=== PATIENT | female | born 1955 | race Caucasian/White ===

== ENCOUNTER 2017-03-06 06:47 | Emergency (ER) | payer OTHER ==
[2017-03-06 06:49] VITALS: BMI 31.5
[2017-03-06 07:15] VITALS: TEMP 98.1
[2017-03-06] MEDS ORDERED: Vancomycin 1gm in NS 250ml 1 GM/250 ML BAG IVPB STA (07:18)
[2017-03-06] MEDS ORDERED: cefTRIAXone 1 gm 1 GM/100 ML BAG IVPB STA (07:18)
--- NOTE | 2017-03-06 07:21 | ED PDOC ---
Arrival/HPI - General Chief Complaint: Eye Problem Time Seen by Provider: 03/06/17 07:03 Historian: Patient - History of Present Illness Narrative History of Present Illness (Text): 03/06/17 07:18 Radha Burris is a 61 year old female, whose past medical history includes hypertension, diabetes and hypercholestremia, presents to the emergency department complaining of 2 day duration of bilateral eye discharge and left periorbital swelling. States she used Visine eye drops for symptomatic relief to the right eye, but states left eye discharge and swelling is unresolved. Denies any vision changes. Denies any numbness to the area. Denies photophobia. Denies any other complaints. PMD: Time/Duration: Other (2 days ) Symptom Onset: Gradual Severity Level: Mild Activities at Onset: Light Past Medical History - Provider Review Nursing Documentation Reviewed: Yes - Infectious Disease Hx of Infectious Diseases: None - Reproductive Menopause: Yes - Cardiac Hx Hypertension: Yes - Pulmonary Hx Respiratory Disorders: No - Neurological Hx Neurological Disorder: No - HEENT Hx HEENT Disorder: Yes Other/Comment: POLYPS IN VOICE BOX - Renal Hx Renal Disorder: No - Endocrine/Metabolic Hx Diabetes Mellitus Type 2: Yes - Hematological/Oncological Hx Anemia: Yes - Integumentary Hx Dermatological Disorder: No - Musculoskeletal/Rheumatological Hx Back Pain: Yes - Gastrointestinal Hx Gall Bladder Disease: Yes - Genitourinary/Gynecological Hx Genitourinary Disorders: No - Psychiatric Hx Anxiety: Yes Hx Depression: Yes Hx Substance Use: No - Surgical History Hx Thyroidectomy: Yes (partial) Hx Tubal Ligation: Yes (ectopic) Other/Comment: uterine ablation/polyps vocal cords/left leg varicosities - Anesthesia Hx Anesthesia: Yes Hx Anesthesia Reactions: No Family/Social History - Physician Review Nursing Documentation Reviewed: Yes Family/Social History: No Known Family HX Smoking Status: Current Some Days Smoker Hx Alcohol Use: No Hx Substance Use: No Allergies/Home Meds Allergies/Adverse Reactions: Allergies seasonal Allergy (Uncoded 03/06/17 07:15) CONGESTION Home Medications: Home Meds Medication Instructions Recorded Confirmed Atorvastatin [Lipitor] 20 mg PO DAILY 12/22/15 03/06/17 Ibuprofen [Motrin Tab] 600 mg PO BID 12/22/15 03/06/17 Losartan/Hydrochlorothiazide 1 tab PO DAILY 06/04/16 08/18/17 [Hyzaar 100-25 Tablet] Metformin HCl [Glucophage] 1,000 mg PO BID 12/22/15 03/06/17 Sertraline [Zoloft] 50 mg PO DAILY 12/22/15 03/06/17 Aspirin [Aspirin Chewable] 81 mg PO DAILY 03/06/17 03/06/17 Review of Systems - Physician Review All systems were reviewed & negative as marked: Yes - Review of Systems Constitutional: Normal. absent: Fatigue Eyes: Other (b/l eye discharge and left periorbital swelling ) Respiratory: absent: SOB, Cough Cardiovascular: Normal Neurological: absent: Headache, Dizziness Physical Exam Vital Signs Reviewed: Yes Vital Signs Temp Pulse Resp BP Pulse Ox 03/06/17 09:43 62 16 128/84 97 03/06/17 07:04 98.1 F 71 18 119/78 98 Temperature: Afebrile Blood Pressure: Normal Pulse: Regular Respiratory Rate: Normal Appearance: Positive for: Well-Appearing, Non-Toxic, Comfortable Pain Distress: None Mental Status: Positive for: Alert and Oriented X 3 - Systems Exam Head: Present: Atraumatic, Normocephalic Pupils: Present: PERRL Extroacular Muscles: Present: EOMI Conjunctiva: Present: Injected Mouth: Present: Moist Mucous Membranes Respiratory/Chest: Present: Clear to Auscultation, Good Air Exchange. No: Respiratory Distress, Accessory Muscle Use Cardiovascular: Present: Regular Rate and Rhythm, Normal S1, S2. No: Murmurs Neurological: Present: GCS=15, CN II-XII Intact, Speech Normal, Motor Func Grossly Intact, Normal Sensory Function Skin: Present: Warm, Dry, Normal Color, Erythematous (periorbital erythema ). No: Rashes Psychiatric: Present: Alert, Oriented x 3, Normal Insight, Normal Concentration Medical Decision Making ED Course and Treatment: 03/06/17 07:24 Impression: A 61 year old female who presents to the emergency department complaining of swelling and discharge to right eye. Plan: -- CT maxillofacial -- Labs -- Brennen Delgado -- Reassess and disposition Progress Notes: 03/06/17 09:34 PROCEDURE: CT ORBITS WITH CONTRAST. IMPRESSION: Inflammatory changes are seen anterior to the left orbit. There is subconjunctival fluid surrounding the anterior globe measuring 4 mm thick. There is no postseptal fluid or inflammation seen 03/06/17 09:43 Case discussed with , log processor operator, who recommends patient to present to his office at [place] for further evaluation. Patient aware and agrees with the plan. - Lab Interpretations Lab Results: 03/06/17 07:35 03/06/17 07:35 Lab Results 03/06/17 07:35: Sodium 144, Potassium 3.9, Chloride 106, Carbon Dioxide 25, Anion Gap 17, BUN 31 H, Creatinine 1.2, Est GFR ( Amer) 55, Est GFR (Non- Af Amer) 46, Random Glucose 120 H, Calcium 9.6, Total Bilirubin 0.3, AST 27, ALT 39, Alkaline Phosphatase 91, Total Protein 7.8, Albumin 4.5, Globulin 3.3, Albumin/Globulin Ratio 1.4 03/06/17 07:35: WBC 7.4 D, RBC 4.06, Hgb 11.8 L, Hct 36.0, MCV 88.7, MCH 29.1, MCHC 32.8, RDW 13.2, Plt Count 231, MPV 8.9, Gran % 74.7 H, Lymph % (Auto) 19.3 L, [place] % (Auto) 4.5, Eos % (Auto) 1.4 L, Baso % (Auto) 0.1, Gran # 5.51, Lymph # 1.4, [place] # 0.3, Eos # 0.1, Baso # 0.01 - RAD Interpretation Radiology Orders: 03/06/17 07:19 MAXILLOFACIAL W/CONTRAST [CT] Stat - Medication Orders Current Medication Orders: Discontinued Medications Ceftriaxone Sodium (Rocephin 1 Gram Ivpb) 1 gm in 100 mls @ 200 mls/hr IVPB STAT STA PRN Reason: Protocol Stop: 03/06/17 07:47 Last Admin: 03/06/17 07:48 Dose: 200 mls/hr Vancomycin HCl (Vancomycin 1gm) 1 gm in 250 mls @ 167 mls/hr IVPB STAT STA PRN Reason: Protocol Stop: 03/06/17 08:47 Last Admin: 03/06/17 08:29 Dose: 167 mls/hr Iohexol (Omnipaque 350 100 Ml) Confirm Administered Dose 350 mg .ROUTE .STK-MED ONE Stop: 03/06/17 08:37 - Scribe Statement The provider has reviewed the documentation as recorded by the Scribe Cruz Jama Provider Attestation: Provider Scribe Attestation: All medical record entries made by the Scribe were at my direction and personally dictated by me. I have reviewed the chart and agree that the record accurately reflects my personal performance of the history, physical exam, medical decision making, and the department course for this patient. I have also personally directed, reviewed, and agree with the discharge instructions and disposition. Disposition/Present on Arrival - Present on Arrival Any Indicators Present on Arrival: No History of DVT/PE: No History of Uncontrolled Diabetes: No Urinary Catheter: No History of Decub. Ulcer: No History Surgical Site Infection Following: None - Disposition Have Diagnosis and Disposition been Completed?: Yes Diagnosis: Periorbital cellulitis, Conjunctivitis Disposition: HOME/ ROUTINE Disposition Time: 10:00 Condition: STABLE Discharge Instructions (ExitCare): Periorbital Cellulitis in Adults (ED), Conjunctivitis (ED) Additional Instructions: please follow up with dr sepulveda. he is expecting to see you right now. return to er with worsening symptoms or concerns. Prescriptions: Polymyxin/Trimethoprim Sulfate [Polytrim Ophth Soln] 1 drop LEFTEYE Q4 #1 bottle Sulfamethoxazole/Trimethoprim [Bactrim DS 800 mg-160 mg] 1 tab PO BID #14 tab Referrals: Jose Angel Jeffery MD [Primary Care Provider] - Follow up with primary Maximino Sepuvleda MD [Staff Provider] - Follow up with primary Forms: NGRAIN (Somali)
[2017-03-06 07:47] LABS: ADD MANUAL DIFF? NO
[2017-03-06 07:50] LABS: BASO # 0.01 K/mm3 (0.0-2.0); BASO % 0.1 % (0.0-3.0); EOS # 0.1 (0.0-0.7); EOS % 1.4 % (1.5-5.0); GRAN # 5.51 (1.4-6.5); GRAN % 74.7 % (50.0-68.0); LYMPH # 1.4 (1.2-3.4); LYMPH % 19.3 % (22.0-35.0); MEAN CELL VOLUME 88.7 fl (80.0-105.0); MEAN CORPUSCULAR HEMOGLOBIN 29.1 pg (25.0-35.0); MEAN CORPUSCULAR HGB CONC 32.8 g/dl (31.0-37.0); MEAN PLATELET VOLUME 8.9 fl (7.0-11.0); MONO # 0.3 (0.1-0.6); MONO % 4.5 % (1.0-6.0); PLATELET COUNT 231 10^3/uL (120.0-450.0); RED CELL DISTRIBUTION WIDTH 13.2 % (11.5-14.5); WHITE BLOOD COUNT 7.4 10^3/ul (4.5-11.0)
[2017-03-06 08:03] LABS: ALB/GLOB RATIO 1.4 (1.1-1.8); BILIRUBIN,TOTAL 0.3 mg/dL (0.2-1.3); CALCIUM 9.6 mg/dL (8.4-10.5); POTASSIUM 3.9 mmol/L (3.6-5.0); TOTAL PROTEIN 7.8 g/dL (5.8-8.3)
[2017-03-06] MEDS ORDERED: Iohexol 350 MG/100 ML VIAL ONE (08:36)
--- NOTE | 2017-03-06 09:30 | CT ---
PROCEDURE: CT ORBITS WITH CONTRAST. HISTORY: left periorbital cellulits r/o orbital cellultis COMPARISON: None available. TECHNIQUE: Following administration of intravenous iodinated contrast, axial CT images of the orbits were obtained. Coronal and sagittal reformats were generated. Intravenous contrast dose: 100 cc of Omni 350 Radiation dose: Total exam DLP = 714 mGy-cm. This CT exam was performed using one or more of the following dose reduction techniques: Automated exposure control, adjustment of the mA and/or kV according to patient size, and/or use of iterative reconstruction technique. FINDINGS: RIGHT ORBIT: RIGHT BONY ORBIT: Normal. RIGHT INTRAORBITAL STRUCTURES: Globe: Normal. Extraocular muscles: Normal. Post septal space: Normal. Optic Nerve: Normal. Lacrimal Apparatus: Normal. RIGHT PRESEPTAL SOFT TISSUES: Normal LEFT ORBIT: LEFT BONY ORBIT: Normal. LEFT INTRAORBITAL STRUCTURES: Globe: Normal. Extraocular muscles: Normal. Post septal space: Normal. Optic Nerve: Normal. Lacrimal Apparatus: Normal. LEFT PRESEPTAL SOFT TISSUES: Inflammatory changes are seen anterior to the left orbit. There is subconjunctival fluid surrounding the anterior globe measuring 4 mm thick. There is no postseptal fluid or inflammation seen OTHER: None. IMPRESSION: Inflammatory changes are seen anterior to the left orbit. There is subconjunctival fluid surrounding the anterior globe measuring 4 mm thick. There is no postseptal fluid or inflammation seen
[2017-03-06 09:45] VITALS: BP 128/84; PULSE 62; RESP 16; O2SAT 97
== END 2017-03-06 10:14 | disposition home or self-care (01) ==
LOC: ED 06:47
DX: L03.213 Periorbital cellulitis (principal); H10.9 Unspecified conjunctivitis
CPT/HCPCS: 70488; 80053; 85025; 96365; 96366; 96367; 99284; J0696; Q9967

== ENCOUNTER 2017-11-18 20:26 | Emergency (ER) | payer MEDICARE ==
[2017-11-18 21:09] VITALS: BP 141/88; PULSE 72; RESP 20; TEMP 98.3; O2SAT 99; BMI 29.9
--- NOTE | 2017-11-18 21:43 | ED PDOC ---
Arrival/HPI - General Historian: Patient - History of Present Illness Time/Duration: 4-6 hours Symptom Onset: Sudden Symptom Course: Improving <Edelmira Thomas - Last Filed: 11/18/17 22:51> <Papa Kendall DO - Last Filed: 11/18/17 23:04> - General Chief Complaint: Lower Extremity Problem/Injury Time Seen by Provider: 11/18/17 21:00 - History of Present Illness Narrative History of Present Illness (Text): 11/18/17 21:39 62 yo F with PMH of DM, HTN, OA presents complaining of left knee pain. Earlier today, patient was running to catch a bus and felt a sudden sharp pain in her left knee, with an associated pop, and was unable to bear weight on her knee. She slowly got up and eventually "hobbled" the rest of the day. She took alleve and tramadol at home for pain, and her pain is moderately improved now. (Edelmira Thomas) Past Medical History - Provider Review Nursing Documentation Reviewed: Yes - Travel History Have you recently traveled outside [place] w/in the past 3 mons?: No - Past History Past History: Non-Contributing - Infectious Disease Hx of Infectious Diseases: None - Cardiac Hx Cardiac Disorders: Yes Hx Hypertension: Yes - Pulmonary Hx Respiratory Disorders: No - Neurological Hx Neurological Disorder: No - HEENT Hx HEENT Disorder: Yes Other/Comment: POLYPS IN VOICE BOX - Renal Hx Renal Disorder: No - Endocrine/Metabolic Hx Endocrine Disorders: Yes Hx Diabetes Mellitus Type 2: Yes - Hematological/Oncological Hx Blood Disorders: Yes Hx Anemia: Yes (Denies any reactions) - Integumentary Hx Dermatological Disorder: No - Musculoskeletal/Rheumatological Hx Musculoskeletal Disorders: Yes Hx Back Pain: Yes - Gastrointestinal Hx Gastrointestinal Disorders: Yes Hx Gall Bladder Disease: Yes - Genitourinary/Gynecological Hx Genitourinary Disorders: No - Psychiatric Hx Psychophysiologic Disorder: Yes Hx Anxiety: Yes Hx Depression: Yes Hx Substance Use: No - Surgical History Hx Thyroidectomy: Yes (partial) Hx Tubal Ligation: Yes (ectopic) Other/Comment: uterine ablation/polyps vocal cords/left leg varicosities - Anesthesia Hx Anesthesia: Yes Hx Anesthesia Reactions: No <Edelmira Thomas - Last Filed: 11/18/17 22:51> Family/Social History - Physician Review Nursing Documentation Reviewed: Yes Family/Social History: Unknown Family HX Smoking Status: Current Some Days Smoker Hx Alcohol Use: No Hx Substance Use: No <Edelmira Thomas - Last Filed: 11/18/17 22:51> Allergies/Home Meds <Edelmira Thomas - Last Filed: 11/18/17 22:51> <Johnsonsagar Papa - Last Filed: 11/18/17 23:04> Allergies/Adverse Reactions: Allergies seasonal Allergy (Uncoded 11/18/17 21:07) CONGESTION Home Medications: Home Meds Medication Instructions Recorded Confirmed Atorvastatin [Lipitor] 20 mg PO DAILY 12/22/15 11/18/17 Losartan/Hydrochlorothiazide 1 tab PO DAILY 12/22/15 11/18/17 [Hyzaar 100-25 Tablet] Metformin HCl [Glucophage] 1,000 mg PO BID 12/22/15 11/18/17 Aspirin [Aspirin Chewable] 81 mg PO DAILY 03/06/17 11/18/17 amLODIPine [Norvasc] 10 mg pe PO DAILY 11/18/17 11/18/17 Review of Systems - Review of Systems Constitutional: Normal Eyes: Normal ENT: Normal Respiratory: Normal Cardiovascular: Normal Gastrointestinal: Normal Genitourinary Female: Normal Musculoskeletal: Arthralgias Skin: Normal Neurological: Normal Endocrine: Normal Hemo/Lymphatic: Normal Psychiatric: Normal <Edelmira Thomas - Last Filed: 11/18/17 22:51> Physical Exam Vital Signs Reviewed: Yes Temperature: Afebrile Blood Pressure: Normal Pulse: Regular Respiratory Rate: Normal Appearance: Positive for: Well-Appearing, Non-Toxic, Comfortable Pain Distress: Mild Mental Status: Positive for: Alert and Oriented X 3 - Systems Exam Head: Present: Atraumatic, Normocephalic Pupils: Present: PERRL Extroacular Muscles: Present: EOMI Conjunctiva: Present: Normal Mouth: Present: Moist Mucous Membranes Neck: Present: Normal Range of Motion Respiratory/Chest: Present: Clear to Auscultation Cardiovascular: Present: Regular Rate and Rhythm Abdomen: No: Tenderness, Distention Upper Extremity: Present: Normal Inspection. No: Cyanosis, Edema Lower Extremity: Present: Normal Inspection, Other (Left knee with lateral joint line tenderness. Negative anterior and posterior drawer test, negative alex, no varus or valgus laxity, negative munir). No: Edema, CALF TENDERNESS, Swelling, Erythema Neurological: Present: GCS=15, CN II-XII Intact, Speech Normal Skin: Present: Warm, Dry, Normal Color. No: Rashes <Edelmira Thomas - Last Filed: 11/18/17 22:51> Vital Signs Temp Pulse Resp BP Pulse Ox 11/18/17 21:00 98.3 F 72 20 141/88 99 11/18/17 20:59 98.3 F 72 18 141/88 99 Medical Decision Making <Edelmira Thomas - Last Filed: 11/18/17 22:51> <Papa Kendall DO - Last Filed: 11/18/17 23:04> ED Course and Treatment: 11/18/17 21:48 Impression: Left knee pain Plan: -- Left knee XR -- Reassess and dispo 11/18/17 22:32 -- Knee XR unremarkable; pending official read -- Will provide patient with a cane and discharge to home (Edelmira Thomas) Patient Seen With Resident: In agreement with resident note which contains more details about the patient. Patient was seen and evaluated with resident. Came up with plan and treatment together. A 62 year old female with left knee pain. Additional HPI as noted by resident. On physical exam, patient has left knee with lateral joint line tenderness, negative anterior and posterior drawer test, no calf tenderness. Ordered left knee Xray to rule out fracture. (Papa Kendall DO) - RAD Interpretation Radiology Orders: 11/18/17 21:29 KNEE LEFT 2 VIEWS (AP & LAT) [RAD] Stat <Edelmira Thomas - Last Filed: 11/18/17 22:51> - PA / SUPERVISOR P[employer] / Resident Statement ROSANA has reviewed & agrees with the documentation as recorded. / has examined the patient and agrees with the treatment plan. - Scribe Statement The provider has reviewed the documentation as recorded by the Scribe <Papa Kendall DO - Last Filed: 11/18/17 23:04> - Scribe Statement Karo Gaines Provider Scribe Attestation: All medical record entries made by the Scribe were at my direction and personally dictated by me. I have reviewed the chart and agree that the record accurately reflects my personal performance of the history, physical exam, medical decision making, and the department course for this patient. I have also personally directed, reviewed, and agree with the discharge instructions and disposition. (Papa Kendall DO) Disposition/Present on Arrival - Present on Arrival Any Indicators Present on Arrival: No History of DVT/PE: No History of Uncontrolled Diabetes: No Urinary Catheter: No History of Decub. Ulcer: No History Surgical Site Infection Following: None - Disposition Have Diagnosis and Disposition been Completed?: Yes Disposition Time: 22:34 <Edelmira Thomas - Last Filed: 11/18/17 22:51> - Disposition Have Diagnosis and Disposition been Completed?: Yes <Papa Kendall DO - Last Filed: 11/18/17 23:04> - Disposition Diagnosis: Knee pain, left Disposition: HOME/ ROUTINE Condition: GOOD Discharge Instructions (ExitCare): Knee Pain (DC) Additional Instructions: -- Use Ice/Heat 10-15 minutes every hour as needed to reduce inflammation -- Use naproxen 500mg every 12 hours -- Elevated your leg while seated -- Follow up with your primary care doctor within 2-5 days -- Follow up with your orthopedic doctor as needed -- Return to the ER for any new or worsening concerns Referrals: Jessica Osorio, [Primary Care Provider] - Follow up with primary Forms: [employer] (Swedish)
--- NOTE | 2017-11-19 07:38 | RAD ---
PROCEDURE: Left Knee Radiographs. HISTORY: Pain. COMPARISON: None. FINDINGS: BONES: No acute fractures appreciated. There is a concave defect at the lateral margins of the left femoral condyles which appears well corticated and may be postoperative but is ultimately of indeterminate etiology. JOINTS: Limited degenerative joint space narrowing seen in all 3 joint compartments with limited osteophyte development at the patellofemoral articulation. No acute fracture dislocation. JOINT EFFUSION: A mild suprapatellar bursa impression effusion is noted. OTHER FINDINGS: None. IMPRESSION: No acute fracture or dislocation. [id number] degenerative joint disease is seen in all 3 joint compartments. Minimal suprapatellar bursa effusion. A [id number] defect is seen at the lateral femoral condyle laterally, potentially postoperative. Process appears nonaggressive but clinical correlation is advised.
== END 2017-11-18 22:46 | disposition home or self-care (01) ==
LOC: ED 20:26
DX: M25.562 Pain in left knee (principal); E11.9 Type 2 diabetes mellitus without complications; I10 Essential (primary) hypertension; F17.200 Nicotine dependence, unspecified, uncomplicated

== ENCOUNTER 2018-07-29 13:15 | Outpatient (CLI) | payer MEDICARE | END 2018-07-29 13:16 | disposition home or self-care (01) | LOC: RAD 13:15 ==